=== PATIENT | male | born 1980 | race Caucasian/White ===

== ENCOUNTER 2017-07-28 17:46 | Inpatient (IN) | payer MEDICAID ==
[2017-07-29 00:31] LABS: ADD MAN DIFF? NO
[2017-07-29 00:33] LABS: WHITE BLOOD COUNT 9.9 10^3/ul (4.8-10.8)
[2017-07-29 00:33] LABS: URINE PH (Dip) POC 5.5 (5.0-8.5)
[2017-07-29 00:33] LABS: BASOPHILS % 0.3 % (0.0-2.0); EOSINOPHILS # 0.1 10^3/ul (0.0-0.5); EOSINOPHILS % 0.8 % (0.0-7.0); HEMOGLOBIN 17.2 g/dl (14.0-18.0); LYMPHOCYTES # 1.6 10^3/ul (0.8-2.9); LYMPHOCYTES % 16.5 % (15.0-51.0); MEAN CORPUSCULAR HEMOGLOBIN 33.6 pg (29.0-33.0); MEAN CORPUSCULAR HGB CONC 33.1 g/dl (32.0-37.0); MEAN CORPUSCULAR VOLUME 101.6 fl (82.0-101.0); MEAN PLATELET VOLUME 10.8 fl (7.4-10.4); MONOCYTE # 0.8 10^3/ul (0.3-0.9); MONOCYTES % 7.6 % (0.0-11.0); NEUTROPHIL # 7.4 10^3/ul (1.6-7.5); NEUTROPHILS % 74.6 % (39.0-77.0); PLATELET COUNT 199 10^3/UL (140-415); RED BLOOD COUNT 5.12 10^6/ul (4.70-6.10); RED CELL DISTRIBUTION WIDTH 12.8 % (11.5-14.5); URINE BLOOD (Dip) POC Trace-lysed (NEGATIVE); URINE GLUCOSE (Dip) POC Negative (NEGATIVE); URINE KETONES (Dip) POC Negative (NEGATIVE); URINE LEUKOCYTE EST (Dip) POC Negative (NEGATIVE); URINE NITRITE (Dip) POC Negative (NEGATIVE); URINE TOTAL PROTEIN POC 2+ (NEGATIVE)
[2017-07-29 00:54] LABS: ALANINE AMINOTRANSFERASE 69 IU/L (13-69); ALBUMIN 3.1 g/dl (3.3-4.9); ALBUMIN/GLOBULIN RATIO 0.96; ALKALINE PHOSPHATASE 91 IU/L (42-121); ANION GAP 17 (8-16); ASPARTATE AMINO TRANSFERASE 54 IU/L (15-46); BILIRUBIN,INDIRECT 0.1 mg/dl (0-1.1); BILIRUBIN,TOTAL 0.1 mg/dl (0.2-1.3); BLOOD UREA NITROGEN 19 mg/dl (7-20); CALCIUM 8.6 mg/dl (8.4-10.2); CARBON DIOXIDE 27 mmol/L (21-31); CHLORIDE 105 mmol/L (97-110); CREATININE 1.27 mg/dl (0.61-1.24); GLUCOSE 104 mg/dl (70-220); LIPASE 83 U/L (23-300); TOTAL PROTEIN 6.3 g/dl (6.1-8.1)
[2017-07-29 01:32] LABS: ETHANOL < 10.0 mg/dl
[2017-07-29 01:41] LABS: SODIUM 141 mmol/L (135-144)
[2017-07-29 02:26] LABS: B-TYPE NATRIURETIC PEPTIDE 4060 PG/ML (0-125)
[2017-07-29] MEDS: CLINDAMYCIN 600 MG/D5W (PMX) 50 ML IVPB ×3 (03:58→17:41)
[2017-07-29] MEDS: FUROSEMIDE 40 MG INJ IV ×2 (04:05→17:41)
[2017-07-29] MEDS ORDERED: BISACODYL (EC) 5 MG TAB PO (05:30)
[2017-07-29] MEDS ORDERED: NACL 0.9% 3 ML SYG IV (05:30)
[2017-07-29] MEDS ORDERED: METOCLOPRAMIDE 10 MG INJ IV (05:30)
[2017-07-29] MEDS ORDERED: DOCUSATE SODIUM 100 MG CAP PO (05:30)
[2017-07-29 08:57] LABS: ADD MAN DIFF? NO; HAAIG REFLEX REFLEX FILED
[2017-07-29] MEDS ORDERED: MULTIVITAMINS 10 ML, THIAMINE 100 MG, FOLIC ACID 1 MG in SOD CHLORIDE 0.9% 1,000 ML IVPB (09:00)
[2017-07-29] MEDS ORDERED: LORAZEPAM 2 MG INJ IV (09:00)
[2017-07-29 09:16] LABS: WHITE BLOOD COUNT 9.7 10^3/ul (4.8-10.8)
[2017-07-29 09:16] LABS: BASOPHILS % 0.3 % (0.0-2.0); EOSINOPHILS % 0.4 % (0.0-7.0); HEMATOCRIT 51.5 % (42.0-52.0); HEMOGLOBIN 17.2 g/dl (14.0-18.0); LYMPHOCYTES # 1.2 10^3/ul (0.8-2.9); LYMPHOCYTES % 12.7 % (15.0-51.0); MEAN CORPUSCULAR HEMOGLOBIN 33.7 pg (29.0-33.0); MEAN CORPUSCULAR HGB CONC 33.4 g/dl (32.0-37.0); MEAN CORPUSCULAR VOLUME 100.8 fl (82.0-101.0); MEAN PLATELET VOLUME 11.2 fl (7.4-10.4); MONOCYTE # 0.6 10^3/ul (0.3-0.9); MONOCYTES % 6.6 % (0.0-11.0); NEUTROPHIL # 7.7 10^3/ul (1.6-7.5); NEUTROPHILS % 79.8 % (39.0-77.0); PLATELET COUNT 204 10^3/UL (140-415); RED BLOOD COUNT 5.11 10^6/ul (4.70-6.10); RED CELL DISTRIBUTION WIDTH 13.1 % (11.5-14.5)
[2017-07-29 09:20] LABS: INR 1.34; PROTIME 16.8 Sec (11.9-14.9); PT RATIO 1.3
[2017-07-29 09:21] LABS: CREATINE KINASE 42 IU/L (23-200); PARTIAL THROMBOPLASTIN TIME 28.3 Sec (25.0-35.0)
[2017-07-29 09:22] LABS: HEMOGLOBIN A1C 5.7 % (0-5.9)
[2017-07-29 09:35] LABS: CK INDEX 2.5; TROPONIN-I 0.033 ng/ml (0.00-0.12)
[2017-07-29 09:35] LABS: AMMONIA 35 umol/l (9-30)
[2017-07-29 09:38] LABS: ALANINE AMINOTRANSFERASE 63 IU/L (13-69); ALBUMIN 3.2 g/dl (3.3-4.9); ALBUMIN/GLOBULIN RATIO 1.23; ALKALINE PHOSPHATASE 85 IU/L (42-121); ANION GAP 17 (8-16); ASPARTATE AMINO TRANSFERASE 49 IU/L (15-46); BILIRUBIN,INDIRECT 0.2 mg/dl (0-1.1); BILIRUBIN,TOTAL 0.2 mg/dl (0.2-1.3); BLOOD UREA NITROGEN 19 mg/dl (7-20); CALCIUM 8.5 mg/dl (8.4-10.2); CARBON DIOXIDE 25 mmol/L (21-31); CHLORIDE 103 mmol/L (97-110); CHOL/HDL RATIO 4.4 RATIO; CHOLESTEROL 139 mg/dl (100-200); CREATININE 1.15 mg/dl (0.61-1.24); GLUCOSE 89 mg/dl (70-220); HDL CHOLESTEROL 31 mg/dl (28-63); LDL CHOLESTEROL,CALCULATED 91 mg/dl; POTASSIUM 3.7 mmol/L (3.5-5.1); SODIUM 141 mmol/L (135-144); TOTAL PROTEIN 5.8 g/dl (6.1-8.1); TRIGLYCERIDES 83 mg/dl (0-149)
[2017-07-29 09:39] LABS: CK-MB 1.03 ng/ml (0.0-2.4)
[2017-07-29 10:24] LABS: HEPATITIS B SURFACE ANTIBODY NEGATIVE (NEGATIVE)
[2017-07-29 10:43] LABS: CREATINE KINASE 42 IU/L (23-200)
[2017-07-29 10:54] LABS: CK INDEX 1.9; TROPONIN-I 0.025 ng/ml (0.00-0.12)
[2017-07-29 10:59] LABS: HEPATITIS B SURFACE ANTIGEN NEGATIVE (NEGATIVE)
[2017-07-29 11:16] LABS: HEPATITIS B CORE ANTIBODY NEGATIVE (NEGATIVE); HEPATITIS C VIRAL ANTIBODY NEGATIVE (NEGATIVE)
[2017-07-29 13:04] LABS: FOLATE 9.2 ng/ml (2.8-20.0)
[2017-07-29] MEDS: POTASSIUM CHLORIDE (SR) 20 MEQ TAB PO (14:26)
[2017-07-29] MEDS: MAGNESIUM SULFATE 2 GM/50 ML 50 ML IVPB (15:26)
[2017-07-29 16:49] LABS: CK INDEX 2.1; CREATINE KINASE 36 IU/L (23-200); TROPONIN-I 0.025 ng/ml (0.00-0.12)
[2017-07-29 16:54] LABS: CK-MB 0.74 ng/ml (0.0-2.4)
[2017-07-30] MEDS: CLINDAMYCIN 600 MG/D5W (PMX) 50 ML IVPB ×4 (00:19→17:54)
[2017-07-30] MEDS: ACETAMINOPHEN 325 MG TAB PO ×2 (00:37→06:00)
[2017-07-30] MEDS: FUROSEMIDE 40 MG INJ IV ×2 (06:00→17:54)
[2017-07-30 07:30] LABS: MAGNESIUM 1.9 mg/dl (1.7-2.5)
[2017-07-30 07:44] LABS: AMPHETAMINE/METHAMPHETAMINE Negative (NEGATIVE)
[2017-07-30 07:57] LABS: BARBITURATES Negative (NEGATIVE); BENZODIAZEPINES Negative (NEGATIVE); CANNABINOIDS Negative (NEGATIVE); COCAINE Negative (NEGATIVE); OPIATES Negative (NEGATIVE)
[2017-07-30 17:00] LABS: FREE T4 (FREE THYROXINE) 0.97 ng/dl (0.79-2.35)
[2017-07-30] MEDS: LISINOPRIL 5 MG TAB PO (17:00)
[2017-07-30] MEDS: RIFAXIMIN 550 MG TAB PO (20:56)
[2017-07-31] MEDS: CLINDAMYCIN 600 MG/D5W (PMX) 50 ML IVPB ×5 (00:23→23:37)
[2017-07-31] MEDS: FUROSEMIDE 40 MG INJ IV ×2 (06:04→18:58)
[2017-07-31 06:48] LABS: ADD MAN DIFF? NO
[2017-07-31 07:08] LABS: WHITE BLOOD COUNT 8.1 10^3/ul (4.8-10.8)
[2017-07-31 07:08] LABS: BASOPHILS % 0.4 % (0.0-2.0); EOSINOPHILS # 0.1 10^3/ul (0.0-0.5); EOSINOPHILS % 1.4 % (0.0-7.0); HEMOGLOBIN 16.5 g/dl (14.0-18.0); LYMPHOCYTES # 1.4 10^3/ul (0.8-2.9); LYMPHOCYTES % 17.2 % (15.0-51.0); MEAN CORPUSCULAR HGB CONC 34.4 g/dl (32.0-37.0); MEAN PLATELET VOLUME 11.2 fl (7.4-10.4); MONOCYTE # 0.7 10^3/ul (0.3-0.9); MONOCYTES % 8.1 % (0.0-11.0); NEUTROPHIL # 5.9 10^3/ul (1.6-7.5); NEUTROPHILS % 72.7 % (39.0-77.0); PLATELET COUNT 180 10^3/UL (140-415); RED BLOOD COUNT 4.85 10^6/ul (4.70-6.10); RED CELL DISTRIBUTION WIDTH 12.8 % (11.5-14.5)
[2017-07-31 07:17] LABS: ALANINE AMINOTRANSFERASE 57 IU/L (13-69); ALBUMIN/GLOBULIN RATIO 0.96; ALKALINE PHOSPHATASE 82 IU/L (42-121); ANION GAP 16 (8-16); ASPARTATE AMINO TRANSFERASE 37 IU/L (15-46); BILIRUBIN,INDIRECT 0.5 mg/dl (0-1.1); BILIRUBIN,TOTAL 0.5 mg/dl (0.2-1.3); BLOOD UREA NITROGEN 20 mg/dl (7-20); CALCIUM 8.8 mg/dl (8.4-10.2); CARBON DIOXIDE 29 mmol/L (21-31); CHLORIDE 101 mmol/L (97-110); CREATININE 1.17 mg/dl (0.61-1.24); GLUCOSE 88 mg/dl (70-220); MAGNESIUM 1.7 mg/dl (1.7-2.5); SODIUM 142 mmol/L (135-144); TOTAL PROTEIN 6.1 g/dl (6.1-8.1)
[2017-07-31 07:24] LABS: B-TYPE NATRIURETIC PEPTIDE 2340 PG/ML (0-125)
[2017-07-31 07:31] LABS: FREE T4 (FREE THYROXINE) 1.11 ng/dl (0.79-2.35)
[2017-07-31] MEDS: RIFAXIMIN 550 MG TAB PO ×2 (12:31→20:44)
[2017-07-31] MEDS: SPIRONOLACTONE 50 MG TAB PO (12:31)
[2017-07-31] MEDS: LISINOPRIL 5 MG TAB PO (12:32)
[2017-07-31] MEDS ORDERED: SILVER SULFADIAZINE 1% 400 GM CR TOP (16:00)
[2017-07-31] MEDS: SILVER SULFADIAZINE 1% 25 GM CR TOP (20:44)
[2017-08-01] MEDS: FUROSEMIDE 40 MG INJ IV ×2 (05:59→18:02)
[2017-08-01] MEDS: CLINDAMYCIN 600 MG/D5W (PMX) 50 ML IVPB ×4 (05:59→23:26)
[2017-08-01] MEDS: SILVER SULFADIAZINE 1% 25 GM CR TOP ×2 (09:00→21:52)
[2017-08-01] MEDS: RIFAXIMIN 550 MG TAB PO (09:11)
[2017-08-01] MEDS: SPIRONOLACTONE 50 MG TAB PO (09:11)
[2017-08-01] MEDS: LISINOPRIL 5 MG TAB PO (09:14)
[2017-08-01] MEDS: LACTULOSE 30ML CUP PO (11:16)
[2017-08-01] MEDS: DIGOXIN 0.125 MG TAB PO (13:15)
[2017-08-02] MEDS: FUROSEMIDE 40 MG INJ IV (05:33)
[2017-08-02] MEDS: CLINDAMYCIN 600 MG/D5W (PMX) 50 ML IVPB ×2 (05:33→13:43)
[2017-08-02 07:14] LABS: ALANINE AMINOTRANSFERASE 52 IU/L (13-69); ALBUMIN 3.3 g/dl (3.3-4.9); ALBUMIN/GLOBULIN RATIO 1.03; ALKALINE PHOSPHATASE 85 IU/L (42-121); ANION GAP 18 (8-16); ASPARTATE AMINO TRANSFERASE 56 IU/L (15-46); BILIRUBIN,INDIRECT 0.4 mg/dl (0-1.1); BILIRUBIN,TOTAL 0.4 mg/dl (0.2-1.3); BLOOD UREA NITROGEN 24 mg/dl (7-20); CALCIUM 9.1 mg/dl (8.4-10.2); CARBON DIOXIDE 28 mmol/L (21-31); CHLORIDE 101 mmol/L (97-110); CREATININE 1.28 mg/dl (0.61-1.24); GLUCOSE 88 mg/dl (70-220); MAGNESIUM 1.8 mg/dl (1.7-2.5); POTASSIUM 3.7 mmol/L (3.5-5.1); SODIUM 143 mmol/L (135-144); TOTAL PROTEIN 6.5 g/dl (6.1-8.1)
[2017-08-02 07:18] LABS: DIGOXIN < 0.4 ng/ml (1.0-2.0)
[2017-08-02 07:22] LABS: B-TYPE NATRIURETIC PEPTIDE 2760 PG/ML (0-125)
[2017-08-02 07:27] LABS: AMMONIA < 9 umol/l (9-30)
[2017-08-02] MEDS: SPIRONOLACTONE 50 MG TAB PO (10:45)
[2017-08-02] MEDS: SILVER SULFADIAZINE 1% 25 GM CR TOP (10:47)
[2017-08-02] MEDS: LACTULOSE 30ML CUP PO (10:47)
[2017-08-02] MEDS: LISINOPRIL 5 MG TAB PO (10:47)
[2017-08-02] MEDS: DIGOXIN 0.125 MG TAB PO (16:18)
[2017-08-03 13:11] LABS: VITAMIN B1 (THIAMINE) 181 nmol/L (78-185)
== END 2017-08-02 18:24 | disposition home or self-care (01) | DRG 292 ==
LOC: E/R 17:46 → MS3 07-29 02:41
DX: I50.21 Acute systolic (congestive) heart failure (principal); L03.115 Cellulitis of right lower limb; N17.9 Acute kidney failure, unspecified; E44.0 Moderate protein-calorie malnutrition; E72.20 Disorder of urea cycle metabolism, unspecified; L03.116 Cellulitis of left lower limb; I42.6 Alcoholic cardiomyopathy; Z68.41 Body mass index [BMI] 40.0-44.9, adult; K70.31 Alcoholic cirrhosis of liver with ascites; I87.8 Other specified disorders of veins; D64.89 Other specified anemias; Z72.0 Tobacco use; F10.10 Alcohol abuse, uncomplicated
CPT/HCPCS: 36415; 71045; 74176; 76705; 80053; 80061; 80162; 80306; 80307; 81003; 82140; 82550; 82553; 82607; 82746; 83036; 83690; 83735; 83880; 84425; 84439; 84443; 84484; 85025; 85610; 85730; 86704; 86706; 86708; 86709; 86803; 87040; 87340; 93005; 93306; 93970; 96374; 96375; 99285-25

== ENCOUNTER 2017-09-28 20:07 | Inpatient (IN) | payer MEDICAID ==
[2017-09-28 22:13] LABS: ADD MAN DIFF? NO
[2017-09-28 22:14] LABS: BASOPHILS % 0.2 % (0.0-2.0); EOSINOPHILS % 0.4 % (0.0-7.0); HEMATOCRIT 47.5 % (42.0-52.0); HEMOGLOBIN 15.8 g/dl (14.0-18.0); LYMPHOCYTES # 1.2 10^3/ul (0.8-2.9); LYMPHOCYTES % 12.8 % (15.0-51.0); MEAN CORPUSCULAR HGB CONC 33.3 g/dl (32.0-37.0); MEAN CORPUSCULAR VOLUME 96.3 fl (82.0-101.0); MEAN PLATELET VOLUME 10.3 fl (7.4-10.4); MONOCYTE # 0.6 10^3/ul (0.3-0.9); MONOCYTES % 6.1 % (0.0-11.0); NEUTROPHIL # 7.3 10^3/ul (1.6-7.5); NEUTROPHILS % 80.3 % (39.0-77.0); PLATELET COUNT 187 10^3/UL (140-415); RED BLOOD COUNT 4.93 10^6/ul (4.70-6.10); RED CELL DISTRIBUTION WIDTH 13.7 % (11.5-14.5)
[2017-09-28 22:14] LABS: WHITE BLOOD COUNT 9.1 10^3/ul (4.8-10.8)
[2017-09-28 22:19] LABS: INR 1.45; PARTIAL THROMBOPLASTIN TIME 28.9 Sec (25.0-35.0); PROTIME 17.9 Sec (11.9-14.9); PT RATIO 1.4
[2017-09-28 22:29] LABS: LACTIC ACID 1.9 mmol/L (0.5-2.0)
[2017-09-28 22:29] LABS: ALANINE AMINOTRANSFERASE 76 IU/L (13-69); ALBUMIN 3.2 g/dl (3.3-4.9); ALKALINE PHOSPHATASE 106 IU/L (42-121); ANION GAP 12 (8-16); ASPARTATE AMINO TRANSFERASE 59 IU/L (15-46); BILIRUBIN,INDIRECT 0.2 mg/dl (0-1.1); BILIRUBIN,TOTAL 0.2 mg/dl (0.2-1.3); BLOOD UREA NITROGEN 18 mg/dl (7-20); CALCIUM 8.6 mg/dl (8.4-10.2); CARBON DIOXIDE 28 mmol/L (21-31); CHLORIDE 104 mmol/L (97-110); CREATININE 1.33 mg/dl (0.61-1.24); GLUCOSE 89 mg/dl (70-220); POTASSIUM 4.1 mmol/L (3.5-5.1); SODIUM 140 mmol/L (135-144); TOTAL PROTEIN 6.4 g/dl (6.1-8.1)
[2017-09-28 22:40] LABS: TROPONIN-I 0.045 ng/ml (0.00-0.12)
[2017-09-28 23:17] LABS: B-TYPE NATRIURETIC PEPTIDE 8850 PG/ML (0-125)
[2017-09-29] MEDS: VANCOMYCIN 1 GM (PMX) 250 ML IVPB (00:20)
[2017-09-29] MEDS ORDERED: ACETAMINOPHEN 325 MG TAB PO ×2 (00:30→03:00)
[2017-09-29] MEDS ORDERED: ONDANSETRON 4 MG INJ IV ×2 (00:30→05:30)
[2017-09-29] MEDS ORDERED: morphine 2 MG INJ IV (03:00)
[2017-09-29] MEDS ORDERED: ALBUTEROL/IPRATROPIUM (NEB) 3 ML AMP HHN (05:30)
[2017-09-29] MEDS ORDERED: NACL 0.9% 3 ML SYG IV (05:30)
[2017-09-29] MEDS ORDERED: VANCOMYCIN IV PER PHARMACY XX (05:30)
[2017-09-29] MEDS: FUROSEMIDE 40 MG TAB PO (06:36)
[2017-09-29] MEDS: HEPARIN 5,000 UNIT/0.5 ML VIAL SC ×2 (08:18→21:24)
[2017-09-29] MEDS: LISINOPRIL 5 MG TAB PO (08:19)
[2017-09-29] MEDS: CEFEPIME 1GM/50 ML (PMX) 50 ML IVPB ×2 (08:19→21:21)
[2017-09-29] MEDS: SILVER SULFADIAZINE 1% 400 GM CR TOP ×2 (08:20→21:00)
[2017-09-29 08:26] LABS: ADD MAN DIFF? NO
[2017-09-29 08:37] LABS: BASOPHILS % 0.2 % (0.0-2.0); EOSINOPHILS # 0.1 10^3/ul (0.0-0.5); EOSINOPHILS % 0.6 % (0.0-7.0); HEMATOCRIT 45.5 % (42.0-52.0); HEMOGLOBIN 15.1 g/dl (14.0-18.0); LYMPHOCYTES # 1.1 10^3/ul (0.8-2.9); LYMPHOCYTES % 13.6 % (15.0-51.0); MEAN CORPUSCULAR HEMOGLOBIN 31.7 pg (29.0-33.0); MEAN CORPUSCULAR HGB CONC 33.2 g/dl (32.0-37.0); MEAN CORPUSCULAR VOLUME 95.6 fl (82.0-101.0); MEAN PLATELET VOLUME 10.5 fl (7.4-10.4); MONOCYTE # 0.5 10^3/ul (0.3-0.9); MONOCYTES % 6.6 % (0.0-11.0); NEUTROPHIL # 6.3 10^3/ul (1.6-7.5); NEUTROPHILS % 78.6 % (39.0-77.0); PLATELET COUNT 182 10^3/UL (140-415); RED BLOOD COUNT 4.76 10^6/ul (4.70-6.10); RED CELL DISTRIBUTION WIDTH 14.3 % (11.5-14.5)
[2017-09-29 09:05] LABS: ALANINE AMINOTRANSFERASE 66 IU/L (13-69); ALBUMIN/GLOBULIN RATIO 0.93; ALKALINE PHOSPHATASE 115 IU/L (42-121); ANION GAP 16 (8-16); ASPARTATE AMINO TRANSFERASE 70 IU/L (15-46); BILIRUBIN,INDIRECT 0.2 mg/dl (0-1.1); BILIRUBIN,TOTAL 0.2 mg/dl (0.2-1.3); BLOOD UREA NITROGEN 15 mg/dl (7-20); CALCIUM 8.4 mg/dl (8.4-10.2); CARBON DIOXIDE 22 mmol/L (21-31); CHLORIDE 107 mmol/L (97-110); CREATININE 1.12 mg/dl (0.61-1.24); GLUCOSE 91 mg/dl (70-220); POTASSIUM 3.9 mmol/L (3.5-5.1); SODIUM 141 mmol/L (135-144); TOTAL PROTEIN 6.2 g/dl (6.1-8.1)
[2017-09-29] MEDS: SILVER SULFADIAZINE 1% 25 GM CR TOP ×2 (10:00→21:21)
[2017-09-29] MEDS: IODIXANOL LOCM 100 ML BTL (10:59)
[2017-09-29] MEDS: SOD CHLORIDE 0.9% 100 ML (10:59)
[2017-09-29] MEDS: VANCOMYCIN 1.75 GM in D5W 500 ML IVPB (12:10)
[2017-09-29] MEDS: morphine 2 MG INJ IV ×2 (15:37→23:01)
[2017-09-29] MEDS: DIGOXIN 0.125 MG TAB PO (15:38)
[2017-09-29] MEDS: VANCOMYCIN 1.25 GM in SOD CHLORIDE 0.9% 250 ML IVPB (21:26)
[2017-09-30 08:11] LABS: ADD MAN DIFF? NO
[2017-09-30] MEDS: CEFEPIME 1GM/50 ML (PMX) 50 ML IVPB ×2 (08:11→22:00)
[2017-09-30] MEDS: LISINOPRIL 5 MG TAB PO (08:11)
[2017-09-30] MEDS: FUROSEMIDE 40 MG TAB PO (08:11)
[2017-09-30] MEDS: SILVER SULFADIAZINE 1% 25 GM CR TOP ×2 (08:12→22:00)
[2017-09-30 08:14] LABS: BASOPHILS % 0.4 % (0.0-2.0); EOSINOPHILS # 0.1 10^3/ul (0.0-0.5); EOSINOPHILS % 0.7 % (0.0-7.0); HEMATOCRIT 47.1 % (42.0-52.0); HEMOGLOBIN 15.6 g/dl (14.0-18.0); LYMPHOCYTES # 1.4 10^3/ul (0.8-2.9); LYMPHOCYTES % 17.6 % (15.0-51.0); MEAN CORPUSCULAR HEMOGLOBIN 31.5 pg (29.0-33.0); MEAN CORPUSCULAR HGB CONC 33.1 g/dl (32.0-37.0); MEAN CORPUSCULAR VOLUME 95.2 fl (82.0-101.0); MEAN PLATELET VOLUME 10.7 fl (7.4-10.4); MONOCYTE # 0.6 10^3/ul (0.3-0.9); NEUTROPHIL # 5.9 10^3/ul (1.6-7.5); NEUTROPHILS % 73.1 % (39.0-77.0); PLATELET COUNT 185 10^3/UL (140-415); RED BLOOD COUNT 4.95 10^6/ul (4.70-6.10); RED CELL DISTRIBUTION WIDTH 14.4 % (11.5-14.5)
[2017-09-30] MEDS: HEPARIN 5,000 UNIT/0.5 ML VIAL SC ×2 (08:17→22:10)
[2017-09-30 08:43] LABS: ANION GAP 14 (8-16); BLOOD UREA NITROGEN 21 mg/dl (7-20); CALCIUM 8.6 mg/dl (8.4-10.2); CARBON DIOXIDE 24 mmol/L (21-31); CHLORIDE 106 mmol/L (97-110); CREATININE 1.12 mg/dl (0.61-1.24); GLUCOSE 104 mg/dl (70-220); MAGNESIUM 1.8 mg/dl (1.7-2.5); PHOSPHORUS 4.8 mg/dl (2.5-4.9); POTASSIUM 4.4 mmol/L (3.5-5.1); SODIUM 140 mmol/L (135-144)
[2017-09-30] MEDS: VANCOMYCIN 1.25 GM in SOD CHLORIDE 0.9% 250 ML IVPB (11:01)
[2017-09-30] MEDS: DIGOXIN 0.125 MG TAB PO (14:24)
[2017-09-30] MEDS ORDERED: morphine LIQ (10 MG/5 ML) CUP PO (15:00)
[2017-09-30 21:27] LABS: VANCOMYCIN,TROUGH 16.4 ug/ml (10.0-20.0)
[2017-09-30] MEDS: SODIUM HYPOCHLORITE 1/40% 1L IRRIG IRR (22:00)
[2017-10-01] MEDS: VANCOMYCIN 1.25 GM in SOD CHLORIDE 0.9% 250 ML IVPB ×2 (00:18→10:53)
[2017-10-01] MEDS: ACETAMINOPHEN 325 MG TAB PO ×2 (00:18→20:53)
[2017-10-01] MEDS: CEPASTAT LOZENGE MT ×4 (00:18→20:38)
[2017-10-01 08:03] LABS: ADD MAN DIFF? NO
[2017-10-01 08:12] LABS: WHITE BLOOD COUNT 8.2 10^3/ul (4.8-10.8)
[2017-10-01 08:12] LABS: BASOPHILS % 0.2 % (0.0-2.0); EOSINOPHILS # 0.1 10^3/ul (0.0-0.5); EOSINOPHILS % 1.3 % (0.0-7.0); HEMATOCRIT 48.1 % (42.0-52.0); LYMPHOCYTES # 1.3 10^3/ul (0.8-2.9); LYMPHOCYTES % 15.9 % (15.0-51.0); MEAN CORPUSCULAR HEMOGLOBIN 31.8 pg (29.0-33.0); MEAN CORPUSCULAR HGB CONC 33.3 g/dl (32.0-37.0); MEAN CORPUSCULAR VOLUME 95.6 fl (82.0-101.0); MEAN PLATELET VOLUME 10.9 fl (7.4-10.4); MONOCYTE # 0.5 10^3/ul (0.3-0.9); MONOCYTES % 6.1 % (0.0-11.0); NEUTROPHIL # 6.2 10^3/ul (1.6-7.5); NEUTROPHILS % 76.3 % (39.0-77.0); PLATELET COUNT 192 10^3/UL (140-415); RED BLOOD COUNT 5.03 10^6/ul (4.70-6.10)
[2017-10-01 08:35] LABS: ANION GAP 14 (8-16); BLOOD UREA NITROGEN 23 mg/dl (7-20); CALCIUM 8.7 mg/dl (8.4-10.2); CARBON DIOXIDE 24 mmol/L (21-31); CHLORIDE 108 mmol/L (97-110); CREATININE 1.18 mg/dl (0.61-1.24); GLUCOSE 106 mg/dl (70-220); POTASSIUM 4.2 mmol/L (3.5-5.1); SODIUM 142 mmol/L (135-144)
[2017-10-01] MEDS: FUROSEMIDE 40 MG TAB PO (09:05)
[2017-10-01] MEDS: CEFEPIME 1GM/50 ML (PMX) 50 ML IVPB ×2 (09:05→20:36)
[2017-10-01] MEDS: BENZONATATE 100 MG CAP PO ×3 (09:06→20:37)
[2017-10-01] MEDS: LISINOPRIL 5 MG TAB PO (09:06)
[2017-10-01] MEDS: SILVER SULFADIAZINE 1% 25 GM CR TOP ×2 (09:15→20:37)
[2017-10-01] MEDS: SODIUM HYPOCHLORITE 1/40% 1L IRRIG IRR ×2 (09:15→20:36)
[2017-10-01] MEDS: HEPARIN 5,000 UNIT/0.5 ML VIAL SC ×2 (09:15→20:47)
[2017-10-01] MEDS: DIGOXIN 0.125 MG TAB PO (13:33)
[2017-10-01] MEDS ORDERED: SILVER SULFADIAZINE 1% 400 GM CR TOP (21:00)
[2017-10-01 22:47] LABS: ANION GAP 13 (8-16); BLOOD UREA NITROGEN 22 mg/dl (7-20); CALCIUM 8.6 mg/dl (8.4-10.2); CARBON DIOXIDE 27 mmol/L (21-31); CHLORIDE 102 mmol/L (97-110); CREATININE 1.31 mg/dl (0.61-1.24); GLUCOSE 91 mg/dl (70-220); MAGNESIUM 1.8 mg/dl (1.7-2.5); POTASSIUM 4.1 mmol/L (3.5-5.1); SODIUM 138 mmol/L (135-144)
[2017-10-01] MEDS: VANCOMYCIN 1 GM 250 ML IVPB (23:08)
[2017-10-02 06:44] LABS: ADD MAN DIFF? NO
[2017-10-02 06:51] LABS: BASOPHILS % 0.2 % (0.0-2.0); EOSINOPHILS # 0.1 10^3/ul (0.0-0.5); EOSINOPHILS % 1.4 % (0.0-7.0); HEMATOCRIT 46.7 % (42.0-52.0); HEMOGLOBIN 15.6 g/dl (14.0-18.0); LYMPHOCYTES # 0.9 10^3/ul (0.8-2.9); LYMPHOCYTES % 10.2 % (15.0-51.0); MEAN CORPUSCULAR HEMOGLOBIN 31.7 pg (29.0-33.0); MEAN CORPUSCULAR HGB CONC 33.4 g/dl (32.0-37.0); MEAN CORPUSCULAR VOLUME 94.9 fl (82.0-101.0); MEAN PLATELET VOLUME 10.6 fl (7.4-10.4); MONOCYTE # 0.7 10^3/ul (0.3-0.9); MONOCYTES % 7.5 % (0.0-11.0); NEUTROPHILS % 80.5 % (39.0-77.0); PLATELET COUNT 193 10^3/UL (140-415); RED BLOOD COUNT 4.92 10^6/ul (4.70-6.10); RED CELL DISTRIBUTION WIDTH 13.9 % (11.5-14.5)
[2017-10-02 06:51] LABS: WHITE BLOOD COUNT 8.8 10^3/ul (4.8-10.8)
[2017-10-02 07:36] LABS: ANION GAP 13 (8-16); BLOOD UREA NITROGEN 20 mg/dl (7-20); CALCIUM 8.4 mg/dl (8.4-10.2); CARBON DIOXIDE 26 mmol/L (21-31); CHLORIDE 106 mmol/L (97-110); CREATININE 1.14 mg/dl (0.61-1.24); GLUCOSE 120 mg/dl (70-220); SODIUM 141 mmol/L (135-144)
[2017-10-02] MEDS: LISINOPRIL 5 MG TAB PO (08:28)
[2017-10-02] MEDS: BENZONATATE 100 MG CAP PO ×3 (08:29→21:55)
[2017-10-02] MEDS: CEPASTAT LOZENGE MT ×2 (08:29→21:55)
[2017-10-02] MEDS: CEFEPIME 1GM/50 ML (PMX) 50 ML IVPB ×2 (08:29→21:55)
[2017-10-02] MEDS: FUROSEMIDE 40 MG TAB PO (08:29)
[2017-10-02] MEDS: HEPARIN 5,000 UNIT/0.5 ML VIAL SC ×2 (08:36→22:07)
[2017-10-02] MEDS: SODIUM HYPOCHLORITE 1/40% 1L IRRIG IRR ×2 (08:37→21:55)
[2017-10-02] MEDS: SILVER SULFADIAZINE 1% 25 GM CR TOP ×2 (08:37→21:55)
[2017-10-02] MEDS: DIGOXIN 0.125 MG TAB PO (13:13)
[2017-10-02] MEDS: VANCOMYCIN 1 GM 250 ML IVPB ×2 (13:14→23:32)
[2017-10-03] MEDS: SPIRONOLACTONE 25 MG TAB PO (09:25)
[2017-10-03] MEDS: LISINOPRIL 5 MG TAB PO (09:27)
[2017-10-03] MEDS: BENZONATATE 100 MG CAP PO ×3 (09:27→21:21)
[2017-10-03] MEDS: SILVER SULFADIAZINE 1% 25 GM CR TOP ×2 (09:27→21:22)
[2017-10-03] MEDS: SODIUM HYPOCHLORITE 1/40% 1L IRRIG IRR ×2 (09:28→21:21)
[2017-10-03] MEDS: FUROSEMIDE 20 MG INJ IV ×2 (10:00→18:47)
[2017-10-03 10:31] LABS: ADD MAN DIFF? NO
[2017-10-03 10:32] LABS: WHITE BLOOD COUNT 7.7 10^3/ul (4.8-10.8)
[2017-10-03 10:32] LABS: BASOPHILS % 0.3 % (0.0-2.0); EOSINOPHILS # 0.1 10^3/ul (0.0-0.5); EOSINOPHILS % 1.7 % (0.0-7.0); HEMATOCRIT 49.8 % (42.0-52.0); HEMOGLOBIN 16.6 g/dl (14.0-18.0); LYMPHOCYTES # 1.2 10^3/ul (0.8-2.9); LYMPHOCYTES % 15.1 % (15.0-51.0); MEAN CORPUSCULAR HEMOGLOBIN 31.7 pg (29.0-33.0); MEAN CORPUSCULAR HGB CONC 33.3 g/dl (32.0-37.0); MEAN PLATELET VOLUME 10.3 fl (7.4-10.4); MONOCYTE # 0.8 10^3/ul (0.3-0.9); MONOCYTES % 10.9 % (0.0-11.0); NEUTROPHIL # 5.5 10^3/ul (1.6-7.5); NEUTROPHILS % 71.6 % (39.0-77.0); PLATELET COUNT 194 10^3/UL (140-415); RED BLOOD COUNT 5.24 10^6/ul (4.70-6.10); RED CELL DISTRIBUTION WIDTH 13.8 % (11.5-14.5)
[2017-10-03] MEDS: HEPARIN 5,000 UNIT/0.5 ML VIAL SC ×2 (10:56→22:18)
[2017-10-03 10:57] LABS: ANION GAP 13 (8-16); BLOOD UREA NITROGEN 18 mg/dl (7-20); CALCIUM 8.7 mg/dl (8.4-10.2); CARBON DIOXIDE 28 mmol/L (21-31); CHLORIDE 104 mmol/L (97-110); CREATININE 1.02 mg/dl (0.61-1.24); GLUCOSE 125 mg/dl (70-220); SODIUM 141 mmol/L (135-144)
[2017-10-03 11:03] LABS: VANCOMYCIN,TROUGH 8.1 ug/ml (10.0-20.0)
[2017-10-03] MEDS: LEVOFLOXACIN 500 MG TAB PO (12:19)
[2017-10-03] MEDS: DIGOXIN 0.125 MG TAB PO (12:19)
[2017-10-04] MEDS: LEVOFLOXACIN 500 MG TAB PO (05:46)
[2017-10-04] MEDS: FUROSEMIDE 20 MG INJ IV (05:46)
[2017-10-04 07:34] LABS: ADD MAN DIFF? NO
[2017-10-04 07:43] LABS: BASOPHILS % 0.4 % (0.0-2.0); EOSINOPHILS # 0.2 10^3/ul (0.0-0.5); EOSINOPHILS % 2.6 % (0.0-7.0); HEMATOCRIT 50.4 % (42.0-52.0); LYMPHOCYTES # 1.3 10^3/ul (0.8-2.9); LYMPHOCYTES % 18.3 % (15.0-51.0); MEAN CORPUSCULAR HGB CONC 33.7 g/dl (32.0-37.0); MEAN CORPUSCULAR VOLUME 94.7 fl (82.0-101.0); MEAN PLATELET VOLUME 10.4 fl (7.4-10.4); MONOCYTE # 0.8 10^3/ul (0.3-0.9); MONOCYTES % 11.1 % (0.0-11.0); NEUTROPHIL # 4.7 10^3/ul (1.6-7.5); NEUTROPHILS % 67.3 % (39.0-77.0); PLATELET COUNT 217 10^3/UL (140-415); RED BLOOD COUNT 5.32 10^6/ul (4.70-6.10)
[2017-10-04 08:00] LABS: INR 1.25; PROTIME 15.9 Sec (11.9-14.9); PT RATIO 1.2
[2017-10-04 08:07] LABS: ALANINE AMINOTRANSFERASE 88 IU/L (13-69); ALBUMIN 3.2 g/dl (3.3-4.9); ALBUMIN/GLOBULIN RATIO 0.91; ALKALINE PHOSPHATASE 133 IU/L (42-121); ANION GAP 15 (8-16); ASPARTATE AMINO TRANSFERASE 68 IU/L (15-46); BILIRUBIN,INDIRECT 0.3 mg/dl (0-1.1); BILIRUBIN,TOTAL 0.3 mg/dl (0.2-1.3); BLOOD UREA NITROGEN 22 mg/dl (7-20); CARBON DIOXIDE 28 mmol/L (21-31); CHLORIDE 104 mmol/L (97-110); CREATININE 1.19 mg/dl (0.61-1.24); GLUCOSE 90 mg/dl (70-220); MAGNESIUM 1.9 mg/dl (1.7-2.5); POTASSIUM 4.1 mmol/L (3.5-5.1); SODIUM 143 mmol/L (135-144); TOTAL PROTEIN 6.7 g/dl (6.1-8.1)
[2017-10-04 08:08] LABS: B-TYPE NATRIURETIC PEPTIDE 3930 PG/ML (0-125)
[2017-10-04 08:22] LABS: FREE T4 (FREE THYROXINE) 1.03 ng/dl (0.79-2.35)
[2017-10-04] MEDS: BENZONATATE 100 MG CAP PO ×2 (08:42→13:01)
[2017-10-04] MEDS: SPIRONOLACTONE 25 MG TAB PO (08:43)
[2017-10-04] MEDS: SODIUM HYPOCHLORITE 1/40% 1L IRRIG IRR (08:43)
[2017-10-04] MEDS: SILVER SULFADIAZINE 1% 25 GM CR TOP (08:43)
[2017-10-04] MEDS: LISINOPRIL 5 MG TAB PO (08:43)
[2017-10-04] MEDS: HEPARIN 5,000 UNIT/0.5 ML VIAL SC (08:49)
[2017-10-04 08:54] LABS: DIGOXIN < 0.4 ng/ml (1.0-2.0)
[2017-10-04] MEDS: DIGOXIN 0.125 MG TAB PO (13:01)
== END 2017-10-04 15:27 | disposition home health service (06) | DRG 602 ==
LOC: TEL 09-29 00:12 → E/R 20:07
DX: L03.116 Cellulitis of left lower limb (principal); J18.9 Pneumonia, unspecified organism; I50.23 Acute on chronic systolic (congestive) heart failure; I47.2 Ventricular tachycardia; I83.218 Varicose veins of right lower extremity with both ulcer of other part of lower extremity and inflammation; I83.228 Varicose veins of left lower extremity with both ulcer of other part of lower extremity and inflammation; L97.819 Non-pressure chronic ulcer of other part of right lower leg with unspecified severity; L97.829 Non-pressure chronic ulcer of other part of left lower leg with unspecified severity; I27.20 Pulmonary hypertension, unspecified; I08.1 Rheumatic disorders of both mitral and tricuspid valves; K70.31 Alcoholic cirrhosis of liver with ascites; L03.115 Cellulitis of right lower limb; I25.5 Ischemic cardiomyopathy; F10.20 Alcohol dependence, uncomplicated; I89.0 Lymphedema, not elsewhere classified; I25.10 Atherosclerotic heart disease of native coronary artery without angina pectoris; I87.8 Other specified disorders of veins; B95.61 Methicillin susceptible Staphylococcus aureus infection as the cause of diseases classified elsewhere; N18.9 Chronic kidney disease, unspecified; Z87.891 Personal history of nicotine dependence
CPT/HCPCS: 36415; 71045; 73700; 80048; 80053; 80162; 80202; 83605; 83735; 83880; 84100; 84439; 84443; 84484; 85025; 85610; 85730; 87040; 87070; 93005; 93970; 96374; 99285-25; J1940

== ENCOUNTER → 2017-10-05 | Emergency (ER) | payer SELFPAY, MEDICAID | END | disposition left against medical advice (07) | LOC: E/R 17:12 | DX: Z53.21 Procedure and treatment not carried out due to patient leaving prior to being seen by health care provider (principal) ==

== ENCOUNTER 2017-12-28 11:05 | Emergency (ER) | payer MEDICAID ==
[2017-12-28] MEDS: FLUORESCEIN STRIP LEFT EYE (11:20)
[2017-12-28] MEDS: FLUORESCEIN STRIP RIGHT EYE (11:20)
[2017-12-28] MEDS: IBUPROFEN 200 MG TAB PO (11:55)
[2017-12-28] MEDS: HYDROCODONE/APAP (5/325) TAB PO (11:55)
[2017-12-28] MEDS: MOXIFLOXACIN 0.5% 3 ML OPH RIGHT EYE (11:55)
== END 2017-12-28 12:29 | disposition home or self-care (01) ==
LOC: FTE 11:05
DX: T15.01XA Foreign body in cornea, right eye, initial encounter (principal); I50.9 Heart failure, unspecified; X58.XXXA Exposure to other specified factors, initial encounter; Y92.9 Unspecified place or not applicable
CPT/HCPCS: 65220; 99283-25

== ENCOUNTER 2018-10-06 11:12 | Inpatient (IN) | payer SELFPAY, MEDICAID ==
[2018-10-06] MEDS: PIPER-TAZO 3.375 GM IV (PMX) 100 ML IVPB ×4 (13:29→20:04)
[2018-10-06] MEDS: SODIUM CHLORIDE 0.9% 1L BAG IV* ×3 (13:29→13:51)
[2018-10-06 13:32] LABS: ADD MAN DIFF? NO
[2018-10-06 13:36] LABS: WHITE BLOOD COUNT 8.2 10^3/ul (4.8-10.8)
[2018-10-06 13:36] LABS: BASOPHILS % 0.2 % (0.0-2.0); EOSINOPHILS # 0.1 10^3/ul (0.0-0.5); HEMATOCRIT 50.2 % (42.0-52.0); LYMPHOCYTES # 1.4 10^3/ul (0.8-2.9); LYMPHOCYTES % 16.8 % (15.0-51.0); MEAN CORPUSCULAR HEMOGLOBIN 30.8 pg (29.0-33.0); MEAN CORPUSCULAR HGB CONC 31.9 g/dl (32.0-37.0); MEAN CORPUSCULAR VOLUME 96.5 fl (82.0-101.0); MEAN PLATELET VOLUME 10.3 fl (7.4-10.4); MONOCYTE # 0.5 10^3/ul (0.3-0.9); MONOCYTES % 6.5 % (0.0-11.0); NEUTROPHIL # 6.2 10^3/ul (1.6-7.5); NEUTROPHILS % 75.3 % (39.0-77.0); PLATELET COUNT 244 10^3/UL (140-415); RED CELL DISTRIBUTION WIDTH 12.4 % (11.5-14.5)
[2018-10-06 13:45] LABS: ADD UMIC YES; UR ASCORBIC ACID NEGATIVE (NEGATIVE); UR BILIRUBIN (Dip) NEGATIVE (NEGATIVE); UR BLOOD (Dip) NEGATIVE (NEGATIVE); UR CLARITY CLEAR (CLEAR); UR COLOR YELLOW (YELLOW); UR GLUCOSE (Dip) NEGATIVE (NEGATIVE); UR KETONES (Dip) NEGATIVE (NEGATIVE); UR LEUKOCYTE ESTERASE (Dip) NEGATIVE Leu/ul (NEGATIVE); UR NITRITE (Dip) NEGATIVE (NEGATIVE); UR RBC 1 /HPF (0-5); UR SPECIFIC GRAVITY (Dip) 1.018 (1.003-1.030); UR TOTAL PROTEIN (Dip) 2+ mg/dl (NEGATIVE); UR UROBILINOGEN (Dip) NEGATIVE (NEGATIVE); UR WBC 1 /HPF (0-5)
[2018-10-06 13:49] LABS: INR 1.27; PT RATIO 1.3
[2018-10-06 13:50] LABS: PARTIAL THROMBOPLASTIN TIME 26.5 Sec (23.0-35.0)
[2018-10-06 13:54] LABS: ALANINE AMINOTRANSFERASE 63 IU/L (13-69); ALBUMIN 3.5 g/dl (3.3-4.9); ALBUMIN/GLOBULIN RATIO 1.12; ALKALINE PHOSPHATASE 78 IU/L (42-121); ANION GAP 11 (5-13); ASPARTATE AMINO TRANSFERASE 47 IU/L (15-46); BILIRUBIN,INDIRECT 0.7 mg/dl (0-1.1); BILIRUBIN,TOTAL 0.7 mg/dl (0.2-1.3); BLOOD UREA NITROGEN 18 mg/dl (7-20); CALCIUM 9.1 mg/dl (8.4-10.2); CARBON DIOXIDE 24 mmol/L (21-31); CHLORIDE 107 mmol/L (97-110); CREATININE 1.22 mg/dl (0.61-1.24); Estimated GFR > 60 mL/min (>60); GLUCOSE 114 mg/dl (70-220); POTASSIUM 4.1 mmol/L (3.5-5.1); SODIUM 142 mmol/L (135-144); TOTAL PROTEIN 6.6 g/dl (6.1-8.1)
[2018-10-06 13:56] LABS: ETHANOL < 10.0 mg/dl (0-0)
[2018-10-06 13:59] LABS: BARBITURATES Negative (NEGATIVE); BENZODIAZEPINES Negative (NEGATIVE); CANNABINOIDS Negative (NEGATIVE); COCAINE Negative (NEGATIVE); OPIATES Negative (NEGATIVE)
[2018-10-06 14:06] LABS: AMPHETAMINE/METHAMPHETAMINE POSITIVE (NEGATIVE); TROPONIN-I 0.021 ng/ml (0.000-0.120)
[2018-10-06 14:24] LABS: B-TYPE NATRIURETIC PEPTIDE 4660 PG/ML (0-125)
[2018-10-06] MEDS: VANCOMYCIN 1 GM (PMX) 250 ML IVPB (15:08)
[2018-10-06] MEDS ORDERED: NACL 0.9% 3 ML SYG IV (16:00)
[2018-10-06] MEDS ORDERED: MAGNESIUM HYDROXIDE 30ML CUP PO (16:00)
[2018-10-06] MEDS ORDERED: HYDROCODONE/APAP (5/325) TAB PO (16:00)
[2018-10-06] MEDS ORDERED: NITROGLYCERIN (SL) 0.4 MG TAB SL (16:00)
[2018-10-06] MEDS ORDERED: LORAZEPAM 2 MG INJ IV (16:00)
[2018-10-06] MEDS ORDERED: morphine 2 MG INJ IV (16:00)
[2018-10-06] MEDS ORDERED: VANCOMYCIN IV PER PHARMACY XX (16:00)
[2018-10-06] MEDS ORDERED: ONDANSETRON 4 MG INJ IV (16:00)
[2018-10-06] MEDS ORDERED: ALBUTEROL/IPRATROPIUM (NEB) 3 ML AMP HHN (16:00)
[2018-10-06] MEDS ORDERED: ACETAMINOPHEN 325 MG TAB PO (16:00)
[2018-10-06 16:24] LABS: FREE T4 (FREE THYROXINE) 1.35 ng/dl (0.79-2.35)
[2018-10-06] MEDS: VANCOMYCIN 1 GM in 250 ML IVPB (16:40)
[2018-10-06] MEDS: FUROSEMIDE 40 MG INJ IV (16:40)
[2018-10-06 18:05] LABS: LACTIC ACID 1.7 mmol/L (0.5-2.0)
[2018-10-06] MEDS: DEXTROSE 5%-0.45% NACL 1,000 ML IV (22:22)
[2018-10-07] MEDS: PIPER-TAZO 3.375 GM IV (PMX) 100 ML IVPB ×5 (00:45→23:26)
[2018-10-07] MEDS: VANCOMYCIN HCL 1.5 GM in SOD CHLORIDE 0.9% 250 ML IVPB ×2 (04:39→17:00)
[2018-10-07 05:18] LABS: ADD MAN DIFF? NO
[2018-10-07 05:23] LABS: BASOPHILS % 0.4 % (0.0-2.0); EOSINOPHILS # 0.1 10^3/ul (0.0-0.5); LYMPHOCYTES # 1.9 10^3/ul (0.8-2.9); MEAN CORPUSCULAR HEMOGLOBIN 31.7 pg (29.0-33.0); MEAN CORPUSCULAR HGB CONC 33.3 g/dl (32.0-37.0); MEAN PLATELET VOLUME 10.4 fl (7.4-10.4); MONOCYTE # 0.6 10^3/ul (0.3-0.9); MONOCYTES % 5.6 % (0.0-11.0); NEUTROPHIL # 7.3 10^3/ul (1.6-7.5); NEUTROPHILS % 73.7 % (39.0-77.0); PLATELET COUNT 235 10^3/UL (140-415); RED BLOOD COUNT 5.05 10^6/ul (4.70-6.10); RED CELL DISTRIBUTION WIDTH 12.6 % (11.5-14.5)
[2018-10-07 05:23] LABS: WHITE BLOOD COUNT 9.9 10^3/ul (4.8-10.8)
[2018-10-07 05:30] LABS: HEMOGLOBIN A1C 5.8 % (0-5.9)
[2018-10-07 05:44] LABS: PHOSPHORUS 4.7 mg/dl (2.5-4.9)
[2018-10-07 05:44] LABS: MAGNESIUM 1.8 mg/dl (1.7-2.5)
[2018-10-07 05:45] LABS: ANION GAP 9 (5-13); BLOOD UREA NITROGEN 17 mg/dl (7-20); CALCIUM 8.8 mg/dl (8.4-10.2); CARBON DIOXIDE 23 mmol/L (21-31); CHLORIDE 110 mmol/L (97-110); CREATININE 1.16 mg/dl (0.61-1.24); Estimated GFR > 60 mL/min (>60); GLUCOSE 101 mg/dl (70-220); POTASSIUM 4.4 mmol/L (3.5-5.1); SODIUM 142 mmol/L (135-144)
[2018-10-07 07:50] LABS: CHOL/HDL RATIO 4.2 RATIO; HDL CHOLESTEROL 33 mg/dl (27-67); LDL CHOLESTEROL,CALCULATED 93 mg/dl; TRIGLYCERIDES 70 mg/dl (0-149)
[2018-10-07 07:50] LABS: CHOLESTEROL 140 mg/dl (100-200)
[2018-10-07] MEDS: SPIRONOLACTONE 25 MG TAB PO (09:00)
[2018-10-07] MEDS: SILVER SULFADIAZINE 1% 25 GM CR TOP (09:00)
[2018-10-07] MEDS: FUROSEMIDE 40 MG INJ IV (11:24)
[2018-10-07] MEDS: HYDROCODONE/APAP (5/325) TAB PO ×2 (11:24→23:24)
[2018-10-07 12:15] LABS: C-REACTIVE PROTEIN 2.2 mg/dl (0.0-0.9)
[2018-10-07] MEDS: DIGOXIN 0.125 MG TAB PO (13:00)
[2018-10-07] MEDS: CLOTRIMAZOLE 1% 30 GM CR TOP (20:50)
[2018-10-08 04:06] LABS: ADD MAN DIFF? NO
[2018-10-08 04:08] LABS: WHITE BLOOD COUNT 8.2 10^3/ul (4.8-10.8)
[2018-10-08 04:08] LABS: BASOPHILS % 0.4 % (0.0-2.0); EOSINOPHILS # 0.1 10^3/ul (0.0-0.5); EOSINOPHILS % 1.7 % (0.0-7.0); HEMATOCRIT 48.3 % (42.0-52.0); HEMOGLOBIN 15.5 g/dl (14.0-18.0); LYMPHOCYTES # 2.2 10^3/ul (0.8-2.9); LYMPHOCYTES % 27.3 % (15.0-51.0); MEAN CORPUSCULAR HEMOGLOBIN 30.7 pg (29.0-33.0); MEAN CORPUSCULAR HGB CONC 32.1 g/dl (32.0-37.0); MEAN CORPUSCULAR VOLUME 95.6 fl (82.0-101.0); MEAN PLATELET VOLUME 9.9 fl (7.4-10.4); MONOCYTE # 0.5 10^3/ul (0.3-0.9); MONOCYTES % 6.1 % (0.0-11.0); NEUTROPHIL # 5.2 10^3/ul (1.6-7.5); NEUTROPHILS % 64.1 % (39.0-77.0); PLATELET COUNT 218 10^3/UL (140-415); RED BLOOD COUNT 5.05 10^6/ul (4.70-6.10); RED CELL DISTRIBUTION WIDTH 12.5 % (11.5-14.5)
[2018-10-08 04:56] LABS: ANION GAP 8 (5-13); BLOOD UREA NITROGEN 22 mg/dl (7-20); CALCIUM 8.6 mg/dl (8.4-10.2); CARBON DIOXIDE 25 mmol/L (21-31); CHLORIDE 107 mmol/L (97-110); CREATININE 1.46 mg/dl (0.61-1.24); Estimated GFR 54 mL/min (>60); GLUCOSE 115 mg/dl (70-220); POTASSIUM 4.9 mmol/L (3.5-5.1); SODIUM 140 mmol/L (135-144)
[2018-10-08 04:58] LABS: VANCOMYCIN,TROUGH 15.6 ug/ml (10.0-20.0)
[2018-10-08] MEDS: PIPER-TAZO 3.375 GM IV (PMX) 100 ML IVPB ×4 (05:02→23:35)
[2018-10-08] MEDS: VANCOMYCIN HCL 1.5 GM in SOD CHLORIDE 0.9% 250 ML IVPB ×2 (05:35→18:20)
[2018-10-08] MEDS: LIDOCAINE/MYLANTA 40 ML BTL PO (08:01)
[2018-10-08] MEDS: FUROSEMIDE 40 MG INJ IV (09:03)
[2018-10-08] MEDS: FAMOTIDINE 20 MG INJ IV ×2 (09:03→20:49)
[2018-10-08] MEDS: DOCUSATE SODIUM 100 MG CAP PO (09:35)
[2018-10-08] MEDS: SPIRONOLACTONE 25 MG TAB PO (09:38)
[2018-10-08] MEDS: CLOTRIMAZOLE 1% 30 GM CR TOP ×2 (09:40→21:35)
[2018-10-08] MEDS: AMMONIUM LACTATE 12% 225 GM LOT TOP (12:00)
[2018-10-08] MEDS: DIGOXIN 0.125 MG TAB PO (13:22)
[2018-10-08] MEDS: SODIUM HYPOCHLORITE (1/40) 1 APPLIC BTL IRR (13:23)
[2018-10-08] MEDS: HYDROCODONE/APAP (5/325) TAB PO (20:57)
[2018-10-09 05:38] LABS: ADD MAN DIFF? NO; BASOPHILS % 0.4 % (0.0-2.0); EOSINOPHILS # 0.2 10^3/ul (0.0-0.5); EOSINOPHILS % 2.3 % (0.0-7.0); HEMATOCRIT 49.8 % (42.0-52.0); HEMOGLOBIN 16.1 g/dl (14.0-18.0); LYMPHOCYTES # 1.8 10^3/ul (0.8-2.9); LYMPHOCYTES % 25.4 % (15.0-51.0); MEAN CORPUSCULAR HGB CONC 32.3 g/dl (32.0-37.0); MEAN CORPUSCULAR VOLUME 95.8 fl (82.0-101.0); MEAN PLATELET VOLUME 10.7 fl (7.4-10.4); MONOCYTE # 0.5 10^3/ul (0.3-0.9); MONOCYTES % 6.8 % (0.0-11.0); NEUTROPHIL # 4.5 10^3/ul (1.6-7.5); NEUTROPHILS % 64.8 % (39.0-77.0); PLATELET COUNT 206 10^3/UL (140-415); RED CELL DISTRIBUTION WIDTH 12.4 % (11.5-14.5)
[2018-10-09 05:38] LABS: WHITE BLOOD COUNT 6.9 10^3/ul (4.8-10.8)
[2018-10-09] MEDS: VANCOMYCIN HCL 1.5 GM in SOD CHLORIDE 0.9% 250 ML IVPB ×2 (05:45→17:24)
[2018-10-09] MEDS: PIPER-TAZO 3.375 GM IV (PMX) 100 ML IVPB ×4 (05:45→23:48)
[2018-10-09 05:54] LABS: ANION GAP 8 (5-13); BLOOD UREA NITROGEN 23 mg/dl (7-20); CALCIUM 8.8 mg/dl (8.4-10.2); CARBON DIOXIDE 23 mmol/L (21-31); CHLORIDE 108 mmol/L (97-110); CREATININE 1.35 mg/dl (0.61-1.24); Estimated GFR 59 mL/min (>60); GLUCOSE 107 mg/dl (70-220); POTASSIUM 4.6 mmol/L (3.5-5.1); SODIUM 139 mmol/L (135-144)
[2018-10-09] MEDS: CLOTRIMAZOLE 1% 30 GM CR TOP ×2 (08:06→20:15)
[2018-10-09] MEDS: FAMOTIDINE 20 MG INJ IV (08:06)
[2018-10-09] MEDS: SPIRONOLACTONE 25 MG TAB PO (08:07)
[2018-10-09] MEDS: FUROSEMIDE 20 MG TAB PO (08:07)
[2018-10-09] MEDS: SODIUM HYPOCHLORITE (1/40) 1 APPLIC BTL IRR (08:10)
[2018-10-09] MEDS: AMMONIUM LACTATE 12% 225 GM LOT TOP (08:11)
[2018-10-09] MEDS: MUPIROCIN 2% 22 GM OINT TOP (14:00)
[2018-10-09] MEDS: DIGOXIN 0.125 MG TAB PO (14:00)
[2018-10-09] MEDS: FAMOTIDINE 20 MG TAB PO (20:14)
[2018-10-10] MEDS: PIPER-TAZO 3.375 GM IV (PMX) 100 ML IVPB ×2 (05:17→12:43)
[2018-10-10 06:01] LABS: ADD MAN DIFF? NO
[2018-10-10] MEDS: VANCOMYCIN HCL 1.5 GM in SOD CHLORIDE 0.9% 250 ML IVPB (06:05)
[2018-10-10 06:08] LABS: BASOPHILS % 0.5 % (0.0-2.0); EOSINOPHILS # 0.2 10^3/ul (0.0-0.5); EOSINOPHILS % 2.5 % (0.0-7.0); HEMOGLOBIN 16.1 g/dl (14.0-18.0); LYMPHOCYTES # 1.7 10^3/ul (0.8-2.9); LYMPHOCYTES % 22.3 % (15.0-51.0); MEAN CORPUSCULAR HEMOGLOBIN 30.8 pg (29.0-33.0); MEAN CORPUSCULAR HGB CONC 32.9 g/dl (32.0-37.0); MEAN CORPUSCULAR VOLUME 93.9 fl (82.0-101.0); MEAN PLATELET VOLUME 10.7 fl (7.4-10.4); MONOCYTE # 0.5 10^3/ul (0.3-0.9); MONOCYTES % 7.2 % (0.0-11.0); NEUTROPHILS % 67.2 % (39.0-77.0); PLATELET COUNT 204 10^3/UL (140-415); RED BLOOD COUNT 5.22 10^6/ul (4.70-6.10); RED CELL DISTRIBUTION WIDTH 12.5 % (11.5-14.5)
[2018-10-10 06:08] LABS: WHITE BLOOD COUNT 7.5 10^3/ul (4.8-10.8)
[2018-10-10 06:20] LABS: ANION GAP 7 (5-13); BLOOD UREA NITROGEN 23 mg/dl (7-20); CALCIUM 8.7 mg/dl (8.4-10.2); CARBON DIOXIDE 25 mmol/L (21-31); CHLORIDE 105 mmol/L (97-110); CREATININE 1.37 mg/dl (0.61-1.24); Estimated GFR 58 mL/min (>60); GLUCOSE 92 mg/dl (70-220); POTASSIUM 4.3 mmol/L (3.5-5.1); SODIUM 137 mmol/L (135-144)
[2018-10-10] MEDS: SPIRONOLACTONE 25 MG TAB PO (08:40)
[2018-10-10] MEDS: FUROSEMIDE 20 MG TAB PO (08:40)
[2018-10-10] MEDS: CLOTRIMAZOLE 1% 30 GM CR TOP (08:40)
[2018-10-10] MEDS: SODIUM HYPOCHLORITE (1/40) 1 APPLIC BTL IRR (08:40)
[2018-10-10] MEDS: MUPIROCIN 2% 22 GM OINT TOP (08:40)
[2018-10-10] MEDS: FAMOTIDINE 20 MG TAB PO (08:40)
[2018-10-10] MEDS: AMMONIUM LACTATE 12% 225 GM LOT TOP (08:41)
[2018-10-10] MEDS: DIGOXIN 0.125 MG TAB PO (12:43)
[2018-10-10] MEDS: LEVOFLOXACIN 750 MG TABLET PO (16:48)
[2018-10-12] MEDS ORDERED: INFLUENZA VIRUS VACCINE 0.5 ML (DISPENSING) IM* (10:00)
== END 2018-10-10 16:55 | disposition home or self-care (01) | DRG 853 ==
LOC: 2NE 10-07 13:15 → FTE 11:12 → ICU 15:13
PROC: 0JBP0ZZ Excision of Left Lower Leg Subcutaneous Tissue and Fascia, Open Approach (ICD-10-PCS; principal; 2018-10-07)
PROC: 0JBN0ZZ Excision of Right Lower Leg Subcutaneous Tissue and Fascia, Open Approach (ICD-10-PCS; 2018-10-07)
DX: A41.9 Sepsis, unspecified organism (principal); J69.0 Pneumonitis due to inhalation of food and vomit; L03.116 Cellulitis of left lower limb; L03.115 Cellulitis of right lower limb; I42.9 Cardiomyopathy, unspecified; I87.313 Chronic venous hypertension (idiopathic) with ulcer of bilateral lower extremity; N17.9 Acute kidney failure, unspecified; I27.20 Pulmonary hypertension, unspecified; I50.9 Heart failure, unspecified; I11.0 Hypertensive heart disease with heart failure; K70.30 Alcoholic cirrhosis of liver without ascites; F15.10 Other stimulant abuse, uncomplicated; I87.2 Venous insufficiency (chronic) (peripheral); F17.200 Nicotine dependence, unspecified, uncomplicated; I89.0 Lymphedema, not elsewhere classified; F10.20 Alcohol dependence, uncomplicated; Y90.0 Blood alcohol level of less than 20 mg/100 ml; R65.20 Severe sepsis without septic shock; B95.62 Methicillin resistant Staphylococcus aureus infection as the cause of diseases classified elsewhere; B95.1 Streptococcus, group B, as the cause of diseases classified elsewhere
CPT/HCPCS: 36415; 71045; 80048; 80053; 80061; 80202; 80307; 81001; 83036; 83605; 83735; 83880; 84100; 84439; 84443; 84484; 85025; 85610; 85651; 85730; 86140; 87040; 87070; 87081; 87086; 93005; 93306; 93970; 96374; 96375; 97161; 99291-25